=== PATIENT | male | born 1990 | race Caucasian/White ===

== ENCOUNTER 2019-08-31 19:34 | Emergency (ER) | payer BC ==
[~2019-08-31] VITALS: Ht 175.3 cm; Wt 79.3 kg
--- NOTE | 2019-08-31 19:57 | PHYS DOC ---
Adult General Chief Complaint Chief Complaint: HEAD INJURY/TRAUMA.. "I hit my head snow boarding yesterday... ".. " I started vomiting to day..." HPI HPI Patient is a 29 year old male who presents with above hx and complaints of head injury. Pt. fell more than once...and struck head twice very hard. Has had a headache since falling while snowboarding. Patient today started vomiting and now currently has dry heaves. Patient denies any intake bad food. Currently visiting from [facility]. Normally healthy. No other family members currently ill. No history immunosuppression Patient denies loss of consciousness. The head injury but states he was stunned Review of Systems Review of Systems Constitutional: Denies fever or chills [] Eyes: Denies change in visual acuity, redness, or eye pain [] HENT: Denies nasal congestion or sore throat [] Respiratory: Denies cough or shortness of breath [] Cardiovascular: No additional information not addressed in HPI [] GI: Denies abdominal pain, bloody stools or diarrhea [complaints of nausea, vomiting, : Denies dysuria or hematuria [] Musculoskeletal: Denies back pain or joint pain [] Integument: Denies rash or skin lesions [] Neurologic: Complains of headache,. Denies focal weakness or sensory changes [] Endocrine: Denies polyuria or polydipsia [] All other systems were reviewed and found to be within normal limits, except as documented in this note. Family History Family History Noncontributory Current Medications Current Medications See nursing for home meds Allergies Allergies No known drug allergies Physical Exam Physical Exam Constitutional: Well developed, well nourished, moderate acute distress, non- toxic appearance. [] HENT: Normocephalic, atraumatic, bilateral external ears normal, oropharynx dry, no oral exudates, nose normal. [] Eyes: PERRLA, EOMI, conjunctiva normal, no discharge. [] Neck: Normal range of motion, no tenderness, supple, no stridor. [] Cardiovascular:Bradycardia Heart rate regular rhythm, no murmur [] Lungs & Thorax: Bilateral breath sounds clear to auscultation [] Abdomen: Bowel sounds normal, soft, no tenderness, no masses, no pulsatile masses. [] Skin: Warm, dry, no erythema, no rash. [] Back: No tenderness, no CVA tenderness. [] Extremities: No tenderness, no cyanosis, no clubbing, ROM intact, no edema. [] Neurologic: Alert and oriented X 3, normal motor function, normal sensory function, no focal deficits noted. []DTRs +2 patella and brachial. Interceptor Operator equal. Right-hand dominant. Psychologic: Affect normal, judgement normal, mood normal. [] EKG EKG My interpretation EKG shows a sinus bradycardia at 47 bpm. Some nonspecific anterior septal changes. But no findings acute STEMI of contralateral changes.[] Radiology/Procedures Radiology/Procedures [][address] [address] IMAGING REPORT Signed PATIENT: MERLIN RIVERS ACCOUNT: [id number] : 1990 LOCATION: ER AGE: 29 SEX: M EXAM STATUS: REG ER ORD. PHYSICIAN: JUAN VOSS MD REASON: head injury snow boarding, YESTERDAY PROCEDURE: CT HEAD AND CERVICAL SPINE WO CT scan of the head without contrast 08/31/2019 Clinical History: Head injury snowboarding yesterday. Technique: Unenhanced, contiguous, 5 mm axial sections were obtained through the head. One or more of the following individualized dose reduction techniques were utilized for this study: 1. Automated exposure control. 2. Adjustment of the mA and/or kV according to patient size. 3. Use of iterative reconstruction technique. Findings: The ventricles and sulci are within normal limits in size and configuration. No area of abnormal attenuation is seen involving the brain parenchyma. No extra-axial fluid collection is noted. No skull fracture is seen. Impression: No acute intracranial abnormality is seen. CT scan of the cervical spine without contrast 08/31/2019 Clinical history: Neck injury. Snowboarding accident. Technique: Unenhanced, contiguous, 0.625 mm axial sections were obtained through the cervical spine. Axial, coronal and sagittal reconstructed images were obtained. One or more of the following individualized dose reduction techniques were utilized for this study: 1. Automated exposure control. 2. Adjustment of the mA and/or kV according to patient size. 3. Use of iterative reconstruction technique. Findings: Sagittal and coronal reconstructed images demonstrate very mild lateral curvature of the cervical spine, convex to the left. There is straightening of the normal cervical lordosis. No fracture or subluxation cervical vertebrae seen. Impression: No fracture or subluxation of the cervical vertebra is identified. Electronically signed by: German Keys MD (08/31/2019 9:19 PM) [id number] DICTATED AND SIGNED BY: GERMAN KEYS MD DATE: 08/31/199 CC: JUAN VOSS MD; PCP,NO ~ Course & Med Decision Making Course & Med Decision Making Pertinent Labs and Imaging studies reviewed. (See chart for details) Patient to take Zofran 8 mg up 4 times a day for nausea and vomiting. May take Tylenol for pain. Follow-up primary care. Avoid driving or other 2-D. May cause reinjury. Patient currently declines spinal tap. Discussed risk and benefits. Impression: 1. Head injury-concussion 2. Nausea vomiting 3. Bradycardia 4. Dehydration [] Dragon Disclaimer Dragon Disclaimer This electronic medical record was generated, in whole or in part, using a voice recognition dictation system. Departure Departure: Disposition: 01 HOME/RESIDENCE PRIOR TO ADM Condition: STABLE Scripts Ondansetron Hcl (ZOFRAN) 8 Mg Tablet 8 MG PO QIDPRN PRN for active vomiting, #30 BOTTLE Prov: JUAN VOSS MD 08/31/19 Dragon Disclaimer This chart was dictated in whole or in part using Voice Recognition software in a busy, high-work load, and often noisy Emergency Department environment. It may contain unintended and wholly unrecognized errors or omissions. JUAN VOSS MD Aug 31, 2019 19:57
[2019-08-31] MEDS ORDERED: IV RINGERS SOLUTION,LACTATED 1,000 ML IV SCH (20:04)
[2019-08-31] MEDS ORDERED: ONDANSETRON PF 4 MG/2 ML VIAL. ONE ×2 (20:05→20:22)
[2019-08-31 20:14] LABS: BASO % 1 % (0-3); EOS % 1 % (0-3); HEMATOCRIT 46.8 % (39.0-53.0); HEMOGLOBIN 15.5 g/dL (13.0-17.5); LYMPH # 2.2 x10^3/uL (1.0-4.8); LYMPH % 36 % (24-48); MEAN CORPUSCULAR HEMOGLOBIN 29 pg (25-35); MEAN CORPUSCULAR HGB CONC 33 g/dL (31-37); MEAN CORPUSCULAR VOLUME 88 fL (79-100); MONO # 1.2 x10^3/uL (0.0-1.1); MONO % 19 % (0-9); NEUT # 2.8 x10^3uL (1.8-7.7); NEUT % 45 % (31-73); PLATELET COUNT 178 x10^3/uL (140-400); RED BLOOD COUNT 5.32 x10^6/uL (4.30-5.70); RED CELL DISTRIBUTION WIDTH 13.1 % (11.5-14.5); WHITE BLOOD COUNT 6.2 x10^3/uL (4.0-11.0)
[2019-08-31] MEDS ORDERED: ONDANSETRON ODT 4 MG TAB.RAPDIS PO ONE ×2 (20:15→23:45)
[2019-08-31 20:22] LABS: CALCIUM 8.8 mg/dL (8.5-10.1); CREATININE 1.1 mg/dL (0.7-1.3); GFR 79.1; POTASSIUM 3.9 mmol/L (3.5-5.1)
[2019-08-31 20:28] LABS: ALBUMIN 4.1 g/dL (3.4-5.0); DIRECT BILIRUBIN 0.2 mg/dL (0.0-0.2); MAGNESIUM 1.8 mg/dL (1.8-2.4); TOTAL BILIRUBIN 0.3 mg/dL (0.2-1.0); TOTAL PROTEIN 7.3 g/dL (6.4-8.2)
[2019-08-31 21:19] LABS: SEDIMENTATION RATE 5 (0-15)
--- NOTE | 2019-08-31 21:22 | RAD ---
CT scan of the head without contrast 08/31/2019 Clinical History: Head injury snowboarding yesterday. Technique: Unenhanced, contiguous, 5 mm axial sections were obtained through the head. One or more of the following individualized dose reduction techniques were utilized for this study: 1. Automated exposure control. 2. Adjustment of the mA and/or kV according to patient size. 3. Use of iterative reconstruction technique. Findings: The ventricles and sulci are within normal limits in size and configuration. No area of abnormal attenuation is seen involving the brain parenchyma. No extra-axial fluid collection is noted. No skull fracture is seen. Impression: No acute intracranial abnormality is seen. CT scan of the cervical spine without contrast 08/31/2019 Clinical history: Neck injury. Snowboarding accident. Technique: Unenhanced, contiguous, 0.625 mm axial sections were obtained through the cervical spine. Axial, coronal and sagittal reconstructed images were obtained. One or more of the following individualized dose reduction techniques were utilized for this study: 1. Automated exposure control. 2. Adjustment of the mA and/or kV according to patient size. 3. Use of iterative reconstruction technique. Findings: Sagittal and coronal reconstructed images demonstrate very mild lateral curvature of the cervical spine, convex to the left. There is straightening of the normal cervical lordosis. No fracture or subluxation cervical vertebrae seen. Impression: No fracture or subluxation of the cervical vertebra is identified. Electronically signed by: German Ordonez MD (08/31/2019 9:19 PM) [id number]
[2019-08-31 21:48] LABS: INFLUENZA A PATIENT NEGATIVE (NEGATIVE); INFLUENZA B PATIENT NEGATIVE (NEGATIVE)
[2019-08-31] MEDS ORDERED: oxyCODONE/APAP 5/325 1 TAB TABLET PO ONE (22:30)
--- NOTE | 2019-08-31 22:34 | EKG ---
[address] [address] Test Date: 2019-08-31 Test Time: 20:18:56 Pat Name: MERLIN KATZ Department: Room: Gender: M Director Distribution: : 1990 Requested By: JUAN VOSS Order Number: [id number] Reading MD: Measurements Intervals Normanna Rate: 47 P: 59 RI: 162 QRS: 75 QRSD: 104 T: 58 QT: 432 QTc: 386 Interpretive Statements SINUS BRADYCARDIA S1,S2,S3 PATTERN QRS(T) CONTOUR ABNORMALITY CONSIDER ANTEROSEPTAL MYOCARDIAL DAMAGE POSSIBLY ABNORMAL ECG RI6.01 No previous ECG available for comparison
[2019-08-31 23:00] LABS: BARBITURATES NEG (NEG); BENZODIAZEPINES NEG (NEG); CANNABINOIDS NEG (NEG); COCAINE NEG (NEG); METHADONE NEG (NEG); OPIATES NEG (NEG); PHENCYCLIDINE NEG (NEG)
[2019-08-31 23:04] LABS: AMPHETAMINE/METHAMPHETAMINE NEG (NEG)
[2019-08-31 23:14] LABS: BACTERIA,URINE 0 /HPF (0-FEW); BILIRUBIN,URINE NEG (NEG); CLARITY,URINE CLEAR; COLOR,URINE YELLOW; GLUCOSE,URINE NEG (NEG); NITRITE,URINE NEG (NEG); RBC,URINE 0 /HPF (0-2); SQUAMOUS EPITHELIAL CELL,UR OCC /LPF; UROBILINOGEN,URINE 0.2 mg/dL (0.2 mg/dL); WBC,URINE OCC /HPF (0-4)
[2019-08-31] MEDS ORDERED: ONDA8TAB9 PO (23:14)
[2019-08-31 23:47] VITALS: BP 120/54
--- NOTE | 2019-09-01 07:20 | RAD ---
PROCEDURE: ACUTE ABDOMEN SERIES STUDY DATE: 08/31/2019 CLINICAL INDICATION / HISTORY: Nausea vomiting. TECHNIQUE: Upright PA chest, supine and decubitus films of the abdomen were obtained. COMPARISON: None FINDINGS: AP view the chest reveals the lungs to be clear. Cardiac and mediastinal silhouette are unremarkable. No free air is identified below the diaphragms. Supine and decubitus views of the abdomen reveal no dilated loops of bowel or air-fluid levels. No organomegaly is present. No destructive osseous lesions. IMPRESSION: No radiographic evidence for bowel obstruction. Electronically signed by: Twin Ashton MD (09/01/2019 7:17 AM) [id number]
== END 2019-08-31 23:47 | disposition home or self-care (01) ==
LOC: ER 19:34
DX: S06.0X0A Concussion without loss of consciousness, initial encounter (principal); E86.0 Dehydration; R00.1 Bradycardia, unspecified; V00.311A Fall from snowboard, initial encounter; Y93.23 Activity, snow (alpine) (downhill) skiing, snowboarding, sledding, tobogganing and snow tubing; Y92.89 Other specified places as the place of occurrence of the external cause; Y99.8 Other external cause status
CPT/HCPCS: 36415; 70450; 72125; 74022; 80048; 80076; 80307; 81001; 82550; 83690; 83735; 84443; 84484; 85025; 85379; 85610; 85651; 85730; 86705; 86709; 86803; 87070; 87340; 87804; 87880; 93005; 96360; 96361; 99285; J7120; Q0162